=== PATIENT | female | born 1950 | race Two or more races ===

== ENCOUNTER → 2017-11-09 | Outpatient (CLI) | payer OTHER | LOC: GIMAGING 18:58 | PROVIDERS: ATTEND Nurse Practitioner | DX: S52.592A Other fractures of lower end of left radius, initial encounter for closed fracture (principal); S52.615A Nondisplaced fracture of left ulna styloid process, initial encounter for closed fracture; W19.XXXA Unspecified fall, initial encounter | CPT/HCPCS: 73110-PO ==